=== PATIENT | female | born 1995 | race Caucasian/White ===

== ENCOUNTER 2017-07-03 07:50 | Inpatient (IN) | payer MEDICAID ==
[2017-07-03] MEDS ORDERED: MISOPROSTOL 200 MCG TAB PR (08:30)
[2017-07-03] MEDS ORDERED: METHYLERGONOVINE 0.2 MG INJ IM (08:30)
[2017-07-03] MEDS ORDERED: OXYTOCIN 30 UNITS/LR 500 ML IV (08:30)
[2017-07-03] MEDS ORDERED: CARBOPROST 250 MCG INJ IM (08:30)
[2017-07-03] MEDS ORDERED: IBUPROFEN 600 MG TAB PO (08:30)
[2017-07-03] MEDS ORDERED: LIDOCAINE 1% (MPF) 30 ML INJ INJ (08:30)
[2017-07-03] MEDS: LACTATED RINGER'S 1,000 ML IV ×2 (09:14→16:21)
[2017-07-03] MEDS: MINERAL OIL LIGHT 10 ML VIAL TOP (09:16)
[2017-07-03 09:45] LABS: ADD MAN DIFF? NO
[2017-07-03 09:49] LABS: BASOPHILS % 0.3 % (0.0-2.0); EOSINOPHILS % 0.6 % (0.0-7.0); HEMATOCRIT 34.4 % (37.0-47.0); HEMOGLOBIN 12.1 g/dl (12.0-16.0); LYMPHOCYTES # 1.2 10^3/ul (0.8-2.9); LYMPHOCYTES % 18.2 % (18.0-55.0); MEAN CORPUSCULAR HEMOGLOBIN 33.7 pg (29.0-33.0); MEAN CORPUSCULAR HGB CONC 35.2 g/dl (32.0-37.0); MEAN CORPUSCULAR VOLUME 95.8 fl (72.0-104.0); MEAN PLATELET VOLUME 10.6 fl (7.4-10.4); MONOCYTE # 0.5 10^3/ul (0.3-0.9); MONOCYTES % 8.4 % (0.0-13.0); NEUTROPHIL # 4.5 10^3/ul (1.6-7.5); NEUTROPHILS % 71.9 % (30.0-74.0); PLATELET COUNT 213 10^3/UL (140-415); RED BLOOD COUNT 3.59 10^6/ul (4.20-5.40); RED CELL DISTRIBUTION WIDTH 12.7 % (11.5-14.5)
[2017-07-03 09:49] LABS: WHITE BLOOD COUNT 6.3 10^3/ul (4.8-10.8)
[2017-07-03] MEDS: DINOPROSTONE 10 MG VAG SUPP VAG (10:15)
[2017-07-03 10:25] LABS: INR 0.93; PROTIME 12.5 Sec (11.9-14.9)
[2017-07-03 10:26] LABS: PARTIAL THROMBOPLASTIN TIME 31.4 Sec (25.0-35.0)
[2017-07-03 11:05] LABS: HEPATITIS B SURFACE ANTIGEN NEGATIVE (NEGATIVE)
[2017-07-03 15:26] LABS: RAPID PLASMA REAGIN NONREACTIVE (NR)
[2017-07-03] MEDS: BUTORPHANOL 2 MG INJ IV (20:02)
[2017-07-04] MEDS: SOD CHLORIDE 0.9% 1,000 ML IV ×2 (00:16→08:15)
[2017-07-04] MEDS: LACTATED RINGER'S 1,000 ML IV ×2 (04:24→08:22)
[2017-07-04] MEDS: BUTORPHANOL 2 MG INJ IV (04:26)
[2017-07-04] MEDS ORDERED: LACTATED RINGER'S 500 ML IV (09:00)
[2017-07-04] MEDS: LACTATED RINGER'S 500 ML IV ×5 (10:19→20:05)
[2017-07-04] MEDS ORDERED: FENTAnyl 2MCG/ML-ROPIV 0.2% 100 ML (11:40)
[2017-07-04] MEDS: OXYTOCIN 30 UNITS/LR 500 ML IV (11:58)
[2017-07-04] MEDS ORDERED: DIPHENHYDRAMINE 50 MG INJ IV (16:00)
[2017-07-04] MEDS ORDERED: ONDANSETRON 4 MG INJ IV (16:00)
[2017-07-04] MEDS ORDERED: HYDROmorphONE 0.5 MG/0.5 ML SYG IV ×2 (16:00)
[2017-07-04] MEDS ORDERED: NALOXONE (0.4 MG/ML) INJ IV (16:00)
[2017-07-04] MEDS ORDERED: KETOROLAC 30 MG INJ IV (16:00)
[2017-07-04] MEDS: FENTAnyl 2MCG/ML-ROPIV 0.2% 100 ML BAG EPI (21:18)
[2017-07-05] MEDS: LACTATED RINGER'S 500 ML IV ×7 (03:45→18:21)
[2017-07-05] MEDS: FENTAnyl 2MCG/ML-ROPIV 0.2% 100 ML BAG EPI ×4 (03:47→23:38)
[2017-07-05] MEDS: OXYTOCIN 30 UNITS/LR 500 ML IV (12:38)
[2017-07-05] MEDS: SOD CHLORIDE 0.9% 1,000 ML IV ×4 (21:01)
[2017-07-05] MEDS: LACTATED RINGER'S 1,000 ML IV (21:01)
[2017-07-06] MEDS ORDERED: AMPICILLIN 2 GM/NS (PMX) 100 ML (01:58)
[2017-07-06] MEDS: AMPICILLIN 2 GM/NS (PMX) 100 ML IV (02:05)
[2017-07-06] MEDS: LACTATED RINGER'S 1,000 ML IV (03:59)
[2017-07-06] MEDS: FENTAnyl 2MCG/ML-ROPIV 0.2% 100 ML BAG EPI (04:01)
[2017-07-06] MEDS: SOD CHLORIDE 0.9% 1,000 ML IV (05:24)
[2017-07-06] MEDS: OXYTOCIN 30 UNITS/LR 500 ML IV ×2 (06:49→06:54)
[2017-07-06] MEDS: AMPICILLIN 1 GM/NS (PMX) 50 ML IV (07:20)
[2017-07-06] MEDS: MINERAL OIL LIGHT 10 ML VIAL TOP (07:21)
[2017-07-06] MEDS ORDERED: IBUPROFEN 600 MG TAB (07:35)
[2017-07-06] MEDS: IBUPROFEN 600 MG TAB PO ×3 (07:55→18:20)
[2017-07-06] MEDS ORDERED: OXYCODONE/ASPIRIN (4.88/325) TAB PO ×2 (09:30)
[2017-07-06] MEDS ORDERED: OXYTOCIN 30 UNITS/LR 500 ML IV (09:30)
[2017-07-06] MEDS ORDERED: MISOPROSTOL 200 MCG TAB PR (09:30)
[2017-07-06] MEDS ORDERED: METHYLERGONOVINE 0.2 MG INJ IM (09:30)
[2017-07-06] MEDS ORDERED: CARBOPROST 250 MCG INJ IM (09:30)
[2017-07-06] MEDS ORDERED: ZOLPIDEM 5 MG TAB PO (09:30)
[2017-07-06] MEDS: WITCH HAZEL/GLYCERIN PAD PR (10:38)
[2017-07-06] MEDS: BENZOCAINE 20% 56 ML SPRAY TOP (10:38)
[2017-07-06] MEDS: LANOLIN 7 GM TUBE TOP (10:38)
[2017-07-06] MEDS: SENNA/DOCUSATE NA (8.6MG/50MG) TAB PO ×2 (10:39→21:55)
[2017-07-06] MEDS: CEPHALEXIN 500 MG CAP PO (18:21)
[2017-07-07] MEDS: IBUPROFEN 600 MG TAB PO ×5 (00:18→23:26)
[2017-07-07] MEDS: CEPHALEXIN 500 MG CAP PO ×5 (00:18→23:26)
[2017-07-07] MEDS: SENNA/DOCUSATE NA (8.6MG/50MG) TAB PO ×2 (08:40→20:31)
[2017-07-07 09:04] LABS: ADD MAN DIFF? NO
[2017-07-07 09:21] LABS: BASOPHILS % 0.3 % (0.0-2.0); EOSINOPHILS # 0.2 10^3/ul (0.0-0.5); HEMATOCRIT 31.6 % (37.0-47.0); HEMOGLOBIN 10.8 g/dl (12.0-16.0); LYMPHOCYTES # 1.2 10^3/ul (0.8-2.9); LYMPHOCYTES % 15.5 % (18.0-55.0); MEAN CORPUSCULAR HEMOGLOBIN 33.3 pg (29.0-33.0); MEAN CORPUSCULAR HGB CONC 34.2 g/dl (32.0-37.0); MEAN CORPUSCULAR VOLUME 97.5 fl (72.0-104.0); MEAN PLATELET VOLUME 10.9 fl (7.4-10.4); MONOCYTE # 0.4 10^3/ul (0.3-0.9); MONOCYTES % 5.3 % (0.0-13.0); NEUTROPHIL # 6.1 10^3/ul (1.6-7.5); NEUTROPHILS % 76.3 % (30.0-74.0); PLATELET COUNT 176 10^3/UL (140-415); RED BLOOD COUNT 3.24 10^6/ul (4.20-5.40); RED CELL DISTRIBUTION WIDTH 12.9 % (11.5-14.5)
[2017-07-08] MEDS: CEPHALEXIN 500 MG CAP PO (05:42)
[2017-07-08] MEDS: IBUPROFEN 600 MG TAB PO (05:42)
[2017-07-08] MEDS ORDERED: DIPHTH/TET/ACEL PERTUSS (ADULT) 0.5 ML VIAL IM* (09:00)
[2017-07-08] MEDS: SENNA/DOCUSATE NA (8.6MG/50MG) TAB PO (10:02)
== END 2017-07-08 12:08 | disposition home or self-care (01) | DRG 775 ==
LOC: L-D 07:50 → PP1 07-06 08:53
PROVIDERS: Obstetrics & Gynecology
PROC: 10E0XZZ Delivery of Products of Conception, External Approach (ICD-10-PCS; principal; 2017-07-06)
PROC: 0UQGXZZ Repair Vagina, External Approach (ICD-10-PCS; 2017-07-06)
DX: O48.0 Post-term pregnancy (principal); O71.4 Obstetric high vaginal laceration alone; O69.81X0 Labor and delivery complicated by cord around neck, without compression, not applicable or unspecified; Z37.0 Single live birth; Z3A.40 40 weeks gestation of pregnancy
CPT/HCPCS: 62319; 85025; 85610; 85730; 86592; 86900; 86901; 87340; 99464

== ENCOUNTER 2019-01-13 20:00 | Emergency (ER) | payer SELFPAY, MEDICAID | END 2019-01-13 21:46 | disposition left against medical advice (07) | LOC: FTE 20:00 | DX: Z53.21 Procedure and treatment not carried out due to patient leaving prior to being seen by health care provider (principal) ==